=== PATIENT | male | born 1985 | race Caucasian/White ===

== ENCOUNTER 2021-09-14 08:03 | Emergency (ER) | payer MEDICAID ==
[~2021-09-14] VITALS: Ht 190.5 cm; Wt 90.7 kg
--- NOTE | 2021-09-14 08:05 | NUR ---
TO ER BED 2, C/O SHAKING AND INSOMNIA X3DAYS DUE TO ALCOHOL WITHDRAWAL, LAST DRINK 3DAYS AGO, AAOX3, BREATHING EVEN AND NON LABORED
--- NOTE | 2021-09-14 08:15 | NUR ---
DR IBRAHIM AT BEDSIDE
[2021-09-14] MEDS ORDERED: CHLO25CA22 PO (08:18)
--- NOTE | 2021-09-14 08:23 | NUR ---
Patient discharged to home in stable condition. Written and verbal after care instructions given. Patient verbalizes understanding of instruction.
[2021-09-14 08:24] VITALS: BP 130/97
== END 2021-09-14 08:24 | disposition home or self-care (01) ==
LOC: ER 08:07
DX: F10.239 Alcohol dependence with withdrawal, unspecified (principal); Y90.9 Presence of alcohol in blood, level not specified

== ENCOUNTER 2021-10-06 10:58 | Emergency (ER) | payer MEDICAID ==
[~2021-10-06] VITALS: Ht 190.5 cm; Wt 90.7 kg
[~2021-10-06 10:58] MED LIST: CHLO25CA22 PO
--- NOTE | 2021-10-06 11:17 | NUR ---
The patient presents to the emergency department with a chief complaint of insomnia x2 days after drinking on and off for 8 days
--- NOTE | 2021-10-06 11:20 | NUR ---
THE PATIENT IS ALERT AND ORIENTED X4. DENIES PAIN. IN ROOM AIR AND DENIES SOB. RESPIRATION REGULAR AND UNLABORED. DENIES SI/HI. WILL CONTINUE TO MONITOR THE PATIENT.
[2021-10-06 14:36] VITALS: BP 123/74
--- NOTE | 2021-10-06 14:36 | NUR ---
Patient discharged to home in stable condition. Written and verbal after care instructions given. Patient verbalizes understanding of instruction.
[2021-10-07] MEDS ORDERED: CHLO25CA22 PO (08:09)
== END 2021-10-06 14:36 | disposition home or self-care (01) ==
LOC: ER 10:58
DX: F10.239 Alcohol dependence with withdrawal, unspecified (principal); G47.00 Insomnia, unspecified; F41.9 Anxiety disorder, unspecified; Y90.9 Presence of alcohol in blood, level not specified

== ENCOUNTER 2021-10-07 07:18 | Emergency (ER) | payer MEDICAID ==
[~2021-10-07] VITALS: Ht 190.5 cm; Wt 90.7 kg
--- NOTE | 2021-10-07 07:30 | NUR ---
PT CAME TO ER C /O HAND TREMORS, INSOMNIA, AND JERKS X3 DAYS S/P DRINKING ALCOHOL AND STOPPING. DENIES N/V, NUMBNESS/TINGLING. PT ASSISTEC TO BED. AAOX4, AMBULATORY, MILD HAND TREMORS NOTED.
--- NOTE | 2021-10-07 07:42 | NUR ---
DR GOOD AT BEDSIDE
[2021-10-07] MEDS ORDERED: CHLO25CA22 PO (08:09)
--- NOTE | 2021-10-07 08:32 | NUR ---
Patient discharged to home in stable condition. Written and verbal after care instructions given. Patient verbalizes understanding of instruction.
[2021-10-07 08:33] VITALS: BP 134/87
== END 2021-10-07 08:32 | disposition home or self-care (01) ==
LOC: ER 07:21
DX: F10.239 Alcohol dependence with withdrawal, unspecified (principal); F41.9 Anxiety disorder, unspecified; F32.9 Major depressive disorder, single episode, unspecified; G47.00 Insomnia, unspecified; Y90.9 Presence of alcohol in blood, level not specified